=== PATIENT | female | born 1940 | race Caucasian/White ===

== ENCOUNTER → 2016-08-26 | Outpatient (CLI) | payer MEDICARE, BC ==
[~2016-08-26] MED LIST: ANTIVERT 25MG25 MG PO; ASPIRIN E.C. 8181 MG PO; CARDI-OMEGA1000 MG PO; COREG 6.256.25 MG/TA PO; HCTZ 25MG TAB25 MG PO; LIPITOR 10MG10 MG PO; NORCO 325 MG-51 TAB PO; NORVASC 5MG5 MG/TAB PO; PERCOCET 325 MG1 TAB PO; PLAVIX 75MG TAB75 MG PO; PRINIVIL40 MG PO; TOPROL XL 25MG25 MG PO
== END ==
LOC: MC.RAD 08:47
DX: D48.62 Neoplasm of uncertain behavior of left breast (principal)

== ENCOUNTER → 2016-08-31 | Outpatient (CLI) | payer MEDICARE, BC | LOC: MC.RAD 09:41 | DX: D48.62 Neoplasm of uncertain behavior of left breast (principal) ==

== ENCOUNTER 2017-03-30 08:43 | Outpatient (RCR) | payer MEDICARE, BC | END 2017-06-28 | LOC: MKS.ESL.PT | DX: I97.2 Postmastectomy lymphedema syndrome (principal); I10 Essential (primary) hypertension; Z90.12 Acquired absence of left breast and nipple; Z85.3 Personal history of malignant neoplasm of breast | CPT/HCPCS: G8990-GP; G8991-GP; G8992-GP ==